=== PATIENT | male | born 1985 | race American Indian/Alaskan Native ===

== ENCOUNTER 2018-10-19 09:41 | Emergency (ER) | payer SELFPAY ==
--- NOTE | 2018-10-19 10:40 | Emergency Department Report ---
ED Abdominal Pain HPI - General Chief Complaint: Abdominal Pain Stated Complaint: STOMACH PAIN Time Seen by Provider: 10/19/18 10:08 Source: patient Mode of arrival: Ambulatory Limitations: No Limitations - History of Present Illness Initial Comments: This is a 33-year-old male with no prior medical history presents ED today complaining of right upper quadrant abdominal pain has been intermittent for the past 2 months. Patient states that pain is actually his right upper quadrant. Patient states that pain is worse with hunger and relieved with drinking fluids. He denies nausea/vomiting/diarrhea/constipation. MD Complaint: abdominal pain Severity scale (0 -10): 6 - Related Data Previous Rx's Medication Instructions Recorded Last Taken Type Dicyclomine [Bentyl] 10 mg PO BID #20 capsule 10/19/18 Unknown Rx Mag Hydrox/Aluminum Hyd/Simeth 15 ml PO TID #120 ml 10/19/18 Unknown Rx [Maalox Advanced Suspension] Ondansetron [Zofran ODT TAB] 8 mg PO Q12HR #20 tab.rapdis 10/19/18 Unknown Rx Allergies Allergy/AdvReac Type Severity Reaction Status Date / Time No Known Allergies Allergy Unverified 10/19/18 09:56 ED Review of Systems ROS: Stated complaint: STOMACH PAIN Other details as noted in HPI Comment: All other systems reviewed and negative ED Past Medical Hx - Past Medical History Previous Medical History?: No - Surgical History Past Surgical History?: Yes Additional Surgical History: Chest Tube 2012 secondary to trauma - Social History Smoking Status: Current Every Day Smoker Substance Use Type: Alcohol - Medications Home Medications: Home Medications Medication Instructions Recorded Confirmed Last Taken Type Dicyclomine [Bentyl] 10 mg PO BID #20 capsule 10/19/18 Unknown Rx Mag Hydrox/Aluminum Hyd/Simeth 15 ml PO TID #120 ml 10/19/18 Unknown Rx [Maalox Advanced Suspension] Ondansetron [Zofran ODT TAB] 8 mg PO Q12HR #20 tab.rapdis 10/19/18 Unknown Rx ED Physical Exam - General Limitations: No Limitations General appearance: alert, in no apparent distress - Head Head exam: Present: atraumatic, normocephalic - Eye Eye exam: Present: normal appearance - ENT ENT exam: Present: mucous membranes moist - Neck Neck exam: Present: normal inspection - Respiratory Respiratory exam: Present: normal lung sounds bilaterally. Absent: respiratory distress - Cardiovascular Cardiovascular Exam: Present: regular rate, normal rhythm. Absent: systolic murmur, diastolic murmur, rubs, gallop - GI/Abdominal GI/Abdominal exam: Present: soft, normal bowel sounds - Rectal Rectal exam: Present: deferred - Extremities Exam Extremities exam: Present: normal inspection - Back Exam Back exam: Present: normal inspection - Neurological Exam Neurological exam: Present: alert, oriented X3 - Psychiatric Psychiatric exam: Present: normal affect, normal mood - Skin Skin exam: Present: warm, dry, intact, normal color. Absent: rash ED Course Vital Signs 10/19/18 09:52 Temperature 98.4 F Pulse Rate 93 H Respiratory 20 Rate Blood Pressure 132/84 O2 Sat by Pulse 99 Oximetry ED Medical Decision Making - Lab Data Result diagrams: 10/19/18 11:05 10/19/18 11:05 - Radiology Data Radiology results: report reviewed FINDINGS: LIVER: Normal. BILIARY SYSTEM: There appears to be trace sludge in the gallbladder. No evidence for gallstones, abnormal dilatation or wall thickening. The CBD measures 3 mm. PANCREAS: Normal. SPLEEN: Normal. KIDNEYS: Normal. AORTA/IVC: Normal. ASCITES: None. IMPRESSION: Trace sludge in the gallbladder, otherwise, unremarkable abdominal sonogram. Transcribed By: TTR Dictated By: SAVANNAH GRANT JR, MD Electronically Authenticated By: SAVANNAH GRANT JR, MD Signed Date/Time: 10/19/18 1111 - Medical Decision Making 33-year-old male presents with right upper quadrant abdominal pain Patient had no vomiting episodes in the ED. Patient is in no acute distress. Discussed a follow-up with gastroenterology if his symptoms persist. Discuss with the patient stat ultrasound was within normal limits, labs are all normal. Critical care attestation.: If time is entered above; I have spent that time in minutes in the direct care of this critically ill patient, excluding procedure time. ED Disposition Clinical Impression: Abdominal pain Disposition: DC-01 TO HOME OR SELFCARE Is pt being admited?: No Does the pt Need Aspirin: No Condition: Stable Instructions: Acute Nausea and Vomiting (ED), Cholelithiasis (ED), Biliary Colic (ED) Additional Instructions: Make sure to follow up with the primary care physician as discussed. Take all your medications as you've been prescribed. Follow-up with communication professor as referred If you have any worsening symptoms or develop new symptoms please return to ED immediately. Prescriptions: Dicyclomine [Bentyl] 10 mg PO BID #20 capsule Mag Hydrox/Aluminum Hyd/Simeth [Maalox Advanced Suspension] 15 ml PO TID #120 ml Ondansetron [Zofran ODT TAB] 8 mg PO Q12HR #20 tab.rapdis Referrals: CHARITO GARCIA MD [Primary Care Provider] - 3-5 Days [facility] [Provider Group] - 3-5 Days Forms: Work/School Release Form(ED) Time of Disposition: 12:20
--- NOTE | 2018-10-19 11:14 | Ultrasound Report ---
ULTRASOUND ABDOMEN COMPLETE: TECHNIQUE: Transabdominal ultrasound with color Doppler interrogation. HISTORY: abdominal pain. COMPARISON: none. FINDINGS: LIVER: Normal. BILIARY SYSTEM: There appears to be trace sludge in the gallbladder. No evidence for gallstones, abnormal dilatation or wall thickening. The CBD measures 3 mm. PANCREAS: Normal. SPLEEN: Normal. KIDNEYS: Normal. AORTA/IVC: Normal. ASCITES: None. IMPRESSION: Trace sludge in the gallbladder, otherwise, unremarkable abdominal sonogram.
[2018-10-19 11:18] LABS: Basophils % (Auto) 0.5 % (0.0-1.8); Eosinophils # (Auto) 0.1 K/mm3 (0.0-0.4); Eosinophils % (Auto) 1.8 % (0.0-4.3); Hematocrit 47.1 % (35.5-45.6); Hemoglobin 15.4 gm/dl (11.8-15.2); Lymphocytes # (Auto) 1.5 K/mm3 (1.2-5.4); Mean Corpuscular HGB Conc 33 % (32-34); Mean Corpuscular Volume 91 fl (84-94); Monocytes # (Auto) 0.5 K/mm3 (0.0-0.8); Monocytes % (Auto) 7.5 % (0.0-7.3); Platelet Count 235 K/mm3 (140-440); Red Blood Count 5.21 M/mm3 (3.65-5.03); Red Cell Distribution Width 14.9 % (13.2-15.2)
[2018-10-19 11:38] LABS: Alanine Aminotransferase 19 units/L (7-56); Albumin 4.1 g/dL (3.9-5); BUN/Creatinine Ratio 7; Blood Urea Nitrogen 6 mg/dL (9-20); Calcium 9.1 mg/dL (8.4-10.2); Hemolysis Index 14
[2018-10-19 13:07] VITALS: BP 124/74
== END 2018-10-19 13:04 | disposition home or self-care (01) ==
LOC: ED 09:41
DX: R10.11 Right upper quadrant pain (principal); F17.200 Nicotine dependence, unspecified, uncomplicated
CPT/HCPCS: 36415; 76700; 80053; 85025